=== PATIENT | female | born 1990 | race Caucasian/White ===

== ENCOUNTER → 2022-01-04 11:17 | Outpatient (REF) | payer BC, SELFPAY ==
--- NOTE | 2022-01-04 11:22 | CA_ITS ---
Transthoracic Echocardiogram Patient (Last, First, Middle): Marie Melo, Gender: Female Date of : 1990 Age: 31 Procedure Date: 01/04/2022 Procedure Type: Transthoracic Echocardiogram Location: OP Height: 160.02 cm Weight: 68.04 kg BSA: 1.71 m2 Heart Rate: bpm BP: 120 / 60 mmHg Open Hearth Laborer: Referring MD: Shilo Jain MD Symptoms: I47.1 - Supraventricular tachycardia Study Quality: Fair ECG Rhythm: Possible atrial tachycardia Conclusions: - The left ventricular systolic function is mildly decreased. The visually estimated ejection fraction is between 45-50%. - No obvious valvular pathology seen on this study. Findings Left Ventricle Normal left ventricular cavity size. There is normal left ventricular wall thickness. The left ventricular systolic function is mildly decreased. The visually estimated ejection fraction is between 45-50%. There is no evidence of regional wall motion abnormalities. Diastolic function is indeterminate on the basis of available data. Right Ventricle Normal right ventricular cavity size and systolic function. Atria Both atria are normal in size. Aortic Valve There is a normal trileaflet aortic valve. There is no aortic valve stenosis. There is no aortic valve regurgitation. Mitral Valve The mitral valve appears normal. There is no mitral valve regurgitation. There is no mitral valve stenosis. Pulmonic Valve The pulmonic valve is likely normal. Tricuspid Valve Normal tricuspid valve structure. There is trace tricuspid valve regurgitation. There is no evidence of pulmonary hypertension. Great Vessels The aortic annulus, sinuses of valsalva, and asc aorta are normal in size. Venous The inferior vena cava is normal in size and collapses greater than 50% with inspiration. Pericardium/Pleural There is no evidence of pericardial effusion. Prior Study Comparison No prior study available for comparison. Recommendations, Care & Conclusions No obvious valvular pathology seen on this study. Measurements 2D Linear Measurements IVSd: 1.02 0.6-0.9/0.6-1.0 cm LVIDd: 4.72 3.9-5.3/4.2-5.9 cm LVIDd Index: 2.76 2.4-3.2/2.2-3.1 cm/m2 LVIDs: 3.39 2.0-3.6 cm LVPWd: 1.00 0.7-1.1 cm Ao Root: 2.60 2.1-3.5 cm LA Diam: 4.00 2.7-3.8/3.0-4.0 cm LAIDs Index: 2.34 1.5-2.3 cm/m2 LV Mass: 208.36 67-162/88-224 g LV Mass Index: 121.85 43-95/49-115 g/m2 LVOT Diam: 2.00 3.0+(-)1.3 cm 2D Systolic Function EF 4C: 37.30 >55% EF 2C: 56.80 >55% EF BiP: 48.10 >55% Mitral Valve MV Pk E: 0.79 MV PK A: 0.55 MV Decel Time: 114.00 E/A: 1.40 E'Lateral: 19.10 E'Medial: 13.20 E/E' Med: 6.00 E/E' Lat: 4.20 PHT: 33.00 MVA PHT: 6.67 Decel [place]: 6.98 Aortic Valve AoV Pk Ad: 1.43 AoV Mn Ad: 1.05 AoV VTI: 0.26 AoV Pk Grad: 8.00 Aov Mn Grad: 5.00 RUDI Cont.VTI: 2.02 LVOT LVOT Pk Ad: 0.87 LVOT Mn Ad: 0.60 LVOT VTI: 0.17 LVOT Pk Grad: 3.00 LVOT Mn Grad: 2.00 LVOT Diam: 2.00 LVOT Area: 3.14 Diastolic Function MV Pk E: 0.79 MV Pk A: 0.55 E/A: 1.40 E'Medial: 13.20 E/E' Med: 6.00 E' Laterial: 19.10 E/E' Lat: 4.20 Right Ventricle TAPSE (mm): 25.00 TVS' Ad: 11.00 Tricuspid Valve TR Pk Ad: 1.77 TR Pk Grad: 13.00 RA Press: 3.00 RVSP: 16.00 Great Vessels Aorta Ao Root-2D: 2.60 2.0-3.7 cm Ao Asc: 2.50 2.1-3.4 cm Pulmonary Valve PV Pk Ad: 0.90 Peak PV Grad: 3.00 Updated in Other Vendor System with Status of Final Shilo Jain MD electronically signed on 01/04/2022 1:27:14 PM with status of Final
== END ==
LOC: HO.CARD 11:17
PROVIDERS: PCP Nurse Practitioner Family; Visit Provider Internal Medicine
DX: I47.1 Supraventricular tachycardia (principal)
CPT/HCPCS: 93005; 93306

== ENCOUNTER 2024-04-30 20:19 | Emergency (ER) | payer BC, SELFPAY ==
--- NOTE | 2024-04-30 | ECG_ITS ---
Test Reason : CHEST TIGHTNESS Blood Pressure : */* mmHG Vent. Rate : 101 BPM Atrial Rate : 101 BPM P-R Int : 150 ms QRS Dur : 80 ms QT Int : 334 ms P-R-T Axes : 38 41 88 degrees QTcB Int : 433 ms Sinus tachycardia Nonspecific T wave abnormality Abnormal ECG No previous ECGs available Referred By: Generic ED Physician Electronically Signed By: KARLIE OSWALD MD
--- NOTE | ~2024-04-30 | CT_ITS ---
CLINICAL HISTORY: Watchman procedure 11 days prior, SOB R O PE CT angiography chest with contrast. 3D Postprocessing. Comparison: None Findings: The thoracic aorta is normal caliber. No acute pulmonary embolus. The visualized thyroid and mediastinum are unremarkable. Moderate cardiomegaly. Moderate to large pericardial effusion measuring up to 2.4 cm in maximum width. Diffuse interstitial thickening and ground-glass opacities of both lungs and small bilateral pleural effusion. Left atrial appendage occlusive device is seen. The upper abdomen is unremarkable. No acute fractures. IMPRESSION: 1. Moderate cardiomegaly, and moderate to large pericardial effusion. 2. Diffuse interstitial thickening, and ground-glass opacities in both lungs as well as small bilateral pleural effusion consistent with fluid overload/CHF. 3. No pulmonary embolism or acute aortic syndrome. This document has been electronically signed by: Abhay Pierce MD on 04/30/2024 22:47:39
[2024-04-30 20:26] VITALS: BP 143/87; PULSE 100; RESP 24; TEMP 36.7; O2SAT 100; BMI 32.4
--- NOTE | 2024-04-30 20:28 | ED.SOB ---
HPI - SOB/Dyspnea General Chief Complaint: Arrhythmia/Palpitations Stated Complaint: Chest tightness Time Seen by Provider: 04/30/24 20:27 Source: patient and family (Mother, Megan who is a nurse) Mode of arrival: ambulatory Limitations: no limitations History of Present Illness ED Provider: Dr. Chidi Manzo HPI Narrative: 33-year-old female with a history of paroxysmal SVT which started 3 years prior during her , she was had multiple cardiac ablations which were unsuccessful on 04/19/2024 she had a video assisted thoracic surgeon for an atrial appendix clipping procedure. The patient states that since her procedure she has been feeling short of breath. She states over the last 1-2 days her shortness of breath is gotten worse and she was had increased dyspnea on exertion. She also states she was developed a pressure/tightness in her chest which seems to be worse with lying flat. She denied fever, chills, rhinorrhea, sore throat. She states she does not have a cough but she feels like she has to cough in order to expand her lungs. She denied nausea, vomiting, diarrhea, myalgias arthralgias. The patient's mother is a nurse and she was concerned that the patient may have a pulmonary embolism therefore she brought the patient to the emergency department for evaluation. The patient has not noticed any swelling or discomfort in her lower extremities. Related Data Home Medications ?Medication ?Instructions ?Recorded ?Confirmed bupropion HCl 300 mg 24 hr tablet, mg PO 04/30/24 extended release metoprolol succinate 25 mg mg PO 04/30/24 tablet,extended release 24 hr (Toprol XL) trazodone 50 mg tablet mg 04/30/24 Allergies Allergy/AdvReac Type Severity Reaction Status Date / Time penicillin G Allergy Unknown rash Verified 04/30/24 20:30 Review of Systems Review of Systems: Yes all other systems are reviewed and are negative [facility] Past Medical History Surgical History No pertinent past surgical history Family History Family History Father No problems noted. Mother No problems noted. Social History Social History Patient Tobacco Use Status: Never used Tobacco Advance Directives: No Advance Directives Information Provided: No Do you have a plan to hurt others: No Plan Patient : No Physical Exam Vital Signs: Vital Signs: Last Vital Signs Temp 98.1 F 05/01/24 11:54 Pulse 89 05/01/24 11:54 Resp 22 H 05/01/24 11:54 BP 122/81 05/01/24 11:54 Pulse Ox 94 05/01/24 11:54 O2 Del Method Room Air 05/01/24 11:54 BMI result Body Mass Index 32.4 Vital signs were normal. Exam: General: Awake, alert in no distress Head: Normocephalic, atraumatic EENT: PERRL, Lids normal, sclera normal, conjunctiva normal, nose normal , ears normal, throat without erythema or exudates Neck: Supple, no adenopathy Lung: breath sounds symmetric, no wheezing, rales or rhonchi Chest: The surgical incision sites on the patient's chest were inspected, there is no increased warmth, the incisions are well heal. Patient does have tenderness palpation over her left anterior inferior ribcage with no increased warmth or erythema in this area. Heart: regular rate and rhythm, normal S1, S2 no murmurs or rubs Abdomen: soft, non-tender, nondistended, normal bowel sounds Back: no vertebral tenderness, no CVAT Extremities: no deformities, no pitting edema Neuro: Awake, alert, oriented, normal speech, moves all extremities symmetrically Psych: Pleasant, cooperative Course Course Course Narrative: I have checked patient at bedside no JVD, mild tachycardia, BP stable ECHO being done Dr. Siddiqi at bedside he has reviewed ECHO no tamponade - IV toradol, colchicine ordered and 100 of LR an hour I contacted [facility] this AM on arrival 730am and they stated no open beds yet Will attempt to contact her provider Dr. Gregg to discuss findings - Dr. Siddiqi involved and is going to speak to Dr. Cristino COREA 9am 05/01/24 repeat calls to [facility] and Dr. Gregg office no beds still at this point 1030am ANMOL Reevaluation(s) Reevaluation #1: [facility] notes they have a bed waiting on bed number after RN to RN Findings: The thoracic aorta is normal caliber. No acute pulmonary embolus. The visualized thyroid and mediastinum are unremarkable. Moderate cardiomegaly. Moderate to large pericardial effusion measuring up to 2.4 cm in maximum width. Diffuse interstitial thickening and ground-glass opacities of both lungs and small bilateral pleural effusion. Left atrial appendage occlusive device is seen. The upper abdomen is unremarkable. No acute fractures. IMPRESSION: 1. Moderate cardiomegaly, and moderate to large pericardial effusion. 2. Diffuse interstitial thickening, and ground-glass opacities in both lungs as well as small bilateral pleural effusion consistent with fluid overload/CHF. 3. No pulmonary embolism or acute aortic syndrome. Medications Administered Generic Name Dose Route Start Last Admin Trade Name Freq PRN Reason Stop Dose Admin Lactated Ringer's 1,000 mls @ 100 mls/hr 05/01/24 09:15 05/01/24 09:20 Lr IVCONT 100 mls/hr .Q10H FAYE Administration Discontinued Medications Generic Name Dose Route Start Last Admin Trade Name Freq PRN Reason Stop Dose Admin Colchicine 0.6 mg 05/01/24 09:00 05/01/24 09:20 Colchicine 0.6 Mg Tablet PO 05/01/24 09:01 0.6 mg ONCE ONE Administration Sodium Chloride 1,000 mls @ 999 mls/hr 04/30/24 20:40 04/30/24 23:18 Ns IV 04/30/24 21:40 Infused .Q1H1M STA Infusion Acetaminophen 1,000 mg in 100 mls @ 400 mls/hr 05/01/24 14:17 05/01/24 14:21 Ofirmev IV 05/01/24 14:31 400 mls/hr ONCE ONE Administration Iohexol 65 ml 04/30/24 21:48 04/30/24 21:49 Iohexol 350 Mg/Ml 100 Ml Infus..Btl IV 04/30/24 21:49 65 ml ONCE ONE Administration Ketorolac Tromethamine 15 mg 05/01/24 09:00 05/01/24 09:20 Ketorolac Tromethamine 15 Mg/Ml Vial IVPUSH 05/01/24 09:01 15 mg ONCE ONE Administration Lorazepam 1 mg 04/30/24 23:03 04/30/24 23:16 Lorazepam 2 Mg/Ml Vial IVPUSH 04/30/24 23:04 1 mg STAT STA Administration Lorazepam 1 mg 05/01/24 00:58 05/01/24 01:02 Lorazepam 2 Mg/Ml Vial IVPUSH 05/01/24 00:59 1 mg STAT STA Administration Medical Decision Making Medical Decision Making [facility] Narrative: 33-year-old female with a history of paroxysmal SVT which started 3 years prior during her , she was had multiple cardiac ablations which were unsuccessful, on 04/19/2024 she had a video assisted thoracic surgeon for an atrial appendiceal clipping procedure at [facility]. Since the surgery she was had shortness of breath, over the last 1-2 days she was had increased shortness of breath, increased dyspnea on exertion and chest pressure/tightness with no other significant symptoms. It was were normal. Surgical sites appeared to be well healed with no evidence of cellulitis. She had no peripheral edema. Differential diagnosis: ?Includes but is not limited to pulmonary embolism, pericarditis, myocarditis, pericardial effusion, pleural effusions, pneumothorax, pneumonia, anemia, electrolyte abnormalities Course: 22:42 My interpretation patient's laboratory evaluation is as follows: Normocytic anemia with an H&H of 9.8 and 29. Elevated platelet count 531. ESR and CRP were elevated 95 and 8.66. BNP is elevated 133. High sensitive troponin I in his elevated at 37.2. PT INR and PTT were normal. D-dimer was elevated 2033. Urinalysis was negative. TSH was normal. Patient's anemia, elevated troponin, ESR, CRP and D-dimer could all be secondary to postsurgical inflammatory changes. Patient's 12 EKG revealed an elevated rate of 101 otherwise was unremarkable. 23:[address] angiogram PE protocol did not reveal any pulmonary embolism but the patient does have a moderate to large pericardial effusion which explains the patient's symptoms. I did discuss this with the patient and the patient's mother and they would like to be transferred back to [facility] further treatment. At this time I do not think that the patient has cardiac tamponade. After my discussion with the patient, she had vein very anxious and was given Ativan 1 mg IV 02:44 I did discuss the patient's presentation with urologist, Dr. Gregg who felt that the patient should be transferred to [facility] for further treatment. I also discuss the patient's presentation with the [facility] transfer line RN. At this time they do not have a bed for the patient but they believe there will the cardiology service in the morning and they requested that we call them back at 09:00 hours. A bedside ultrasound was performed and there was no sign of tamponade at this time, the right ventricle and left ventricles appears to be normal in size with no collapse of the right ventricle and there was no bowing of the ventricular septum. The patient will be kept in the emergency department until a bed can be obtained at [facility]. I did [facility] thoracic surgeon, Dr. Rod to make him aware of this patient in the event that she decompensates overnight. I will also obtain a formal echocardiogram in the morning. At the end of my shift, the patient's care was turned over to my colleague, Dr. Dorys Castillo. 03:52 I ordered a repeat H&H and troponin. Also will obtain a type and screen in the event that the patient's pericardial effusion is secondary to bleeding. Admission/Observation Consideration of admission/observation: Escalation of care including admission/observation considered (Yes) Lab Data MDM Lab Attestation statement: I reviewed the patient's lab results. 05/01/24 04:31 04/30/24 20:54 Labs: Lab Results 04/30/24 04/30/24 04/30/24 Range/Units 20:53 20:54 21:53 WBC 9.6 (4.8-10.8) X10*3/uL RBC 3.10 L (4.20-5.50) X10*6/uL Hgb 9.8 L (12.0-16.0) g/dl Hct 29.3 L (37.0-47.0) % MCV 94.5 (80.0-98.0) fL MCH 31.6 (27.0-33.0) pg MCHC 33.4 (31.0-35.0) g/dl RDW 11.3 (11.0-16.0) % Plt Count 531 H (160-400) X10*3/uL MPV 9.2 L (9.4-12.3) fL Immature Gran % (Auto) 0.4 (0.0-0.4) % Neut % (Auto) 62.2 (45-73) % Lymph % (Auto) 24.9 (20-40) % [place] % (Auto) 8.8 (2-11) % Eos % (Auto) 3.2 (0-4) % Baso % (Auto) 0.5 (0-2) % Lymph # (Auto) 2.4 (1.2-4.9) X10*3/uL [place] # (Auto) 0.9 (0.1-1.2) X10*3/uL Eos # (Auto) 0.3 (0.0-0.4) X10*3/uL Baso # (Auto) 0.1 (0.0-0.2) X10*3/uL Abs Immat Gran (auto) 0.04 H (0.00-0.03) X10*3/uL Absolute Neuts (auto) 6.0 (2.0-8.3) x10*3/uL Absolute Nucleated RBC 0.000 (0.0-0.012) X10*3/uL Nucleated RBC % (auto) 0.0 (0.0-0.2) /100WBC ESR 95 H (0-20) MM/HR PT 11.6 (10.9-12.4) SEC INR 1.0 (0.9-1.1) APTT 28.7 (26.0-36.8) SEC D-Dimer High Sensitivty 2033 NG/ML Sodium 139 (135-145) mmol/L Potassium 4.3 (3.3-5.1) mmol/L Chloride 106 (96-108) mmol/L Carbon Dioxide 23 (22-29) mmol/L Anion Gap 14 (12-20) BUN 15 (9-16) mg/dL Creatinine 0.67 (0.5-1.4) mg/dL Estim Creat Clear Calc 119.5 Estimated GFR > 60 Random Glucose 86 (60-115) mg/dL Lactic Acid 0.8 (0.5-2.0) mmol/L Calcium 8.6 (8.4-10.2) mg/dL Magnesium 2.2 (1.6-2.6) mg/dL Total Bilirubin 0.2 (0.0-1.0) mg/dL AST 26 (5-31) U/L ALT 21 (0-31) U/L Alkaline Phosphatase 112 (39-117) U/L Troponin I High Sens 37.2 H (<3.5-17.0) ng/L C-Reactive Protein 8.66 H (< or = 0.50) mg/dL B-Natriuretic Peptide 133 H (<100) pg/mL Total Protein 7.6 (6.5-8.0) g/dL Albumin 3.7 (3.5-5.0) g/dL Lipase 24 (8-78) U/L TSH 2.05 (0.32-4.0) uIU/mL Beta HCG, Quant < 2 mIU/mL Urine Color Yellow Urine Appearance Clear Urine pH 7.0 (5.0-9.0) Ur Specific [place] 1.020 (1.005-1.025) Urine Protein Negative (Neg-Trace) mg/dL Urine Glucose (UA) Negative (Negative) mg/dL Urine Ketones Negative (Negative) mg/dL Urine Blood Negative (Negative) Urine Nitrite Negative (Negative) Ur Leukocyte Esterase Negative (Negative) 05/01/24 05/01/24 Range/Units 00:11 04:31 WBC (4.8-10.8) X10*3/uL RBC (4.20-5.50) X10*6/uL Hgb 9.3 L (12.0-16.0) g/dl Hct 27.9 L (37.0-47.0) % MCV (80.0-98.0) fL MCH (27.0-33.0) pg MCHC (31.0-35.0) g/dl RDW (11.0-16.0) % Plt Count (160-400) X10*3/uL MPV (9.4-12.3) fL Immature Gran % (Auto) (0.0-0.4) % Neut % (Auto) (45-73) % Lymph % (Auto) (20-40) % [place] % (Auto) (2-11) % Eos % (Auto) (0-4) % Baso % (Auto) (0-2) % Lymph # (Auto) (1.2-4.9) X10*3/uL [place] # (Auto) (0.1-1.2) X10*3/uL Eos # (Auto) (0.0-0.4) X10*3/uL Baso # (Auto) (0.0-0.2) X10*3/uL Abs Immat Gran (auto) (0.00-0.03) X10*3/uL Absolute Neuts (auto) (2.0-8.3) x10*3/uL Absolute Nucleated RBC (0.0-0.012) X10*3/uL Nucleated RBC % (auto) (0.0-0.2) /100WBC ESR (0-20) MM/HR PT (10.9-12.4) SEC INR (0.9-1.1) APTT (26.0-36.8) SEC D-Dimer High Sensitivty NG/ML Sodium (135-145) mmol/L Potassium (3.3-5.1) mmol/L Chloride (96-108) mmol/L Carbon Dioxide (22-29) mmol/L Anion Gap (12-20) BUN (9-16) mg/dL Creatinine (0.5-1.4) mg/dL Estim Creat Clear Calc Estimated GFR Random Glucose (60-115) mg/dL Lactic Acid (0.5-2.0) mmol/L Calcium (8.4-10.2) mg/dL Magnesium (1.6-2.6) mg/dL Total Bilirubin (0.0-1.0) mg/dL AST (5-31) U/L ALT (0-31) U/L Alkaline Phosphatase (39-117) U/L Troponin I High Sens 29.2 H 26.3 H (<3.5-17.0) ng/L C-Reactive Protein (< or = 0.50) mg/dL B-Natriuretic Peptide (<100) pg/mL Total Protein (6.5-8.0) g/dL Albumin (3.5-5.0) g/dL Lipase (8-78) U/L TSH (0.32-4.0) uIU/mL Beta HCG, Quant mIU/mL Urine Color Urine Appearance Urine pH (5.0-9.0) Ur Specific [place] (1.005-1.025) Urine Protein (Neg-Trace) mg/dL Urine Glucose (UA) (Negative) mg/dL Urine Ketones (Negative) mg/dL Urine Blood (Negative) Urine Nitrite (Negative) Ur Leukocyte Esterase (Negative) Independent Interpretation I performed an independent interpretation of an: EKG Interpretation: My independent interpretation patient's 12 EKG done at 20:49 hours is as follows: Sinus tachycardia with a rate of 101, normal FL interval, QRS duration QTC interval, no ST segment elevation, no ST segment depression, no significant T-wave abnormalities, no PACs, no PVCs. Radiology Impression Discussion of test interpretation with radiology: I have reviewed the radiologist's reading. Radiologist Impression: CT angiography chest with contrast. 3D Postprocessing. Comparison: None Findings: The thoracic aorta is normal caliber. No acute pulmonary embolus. The visualized thyroid and mediastinum are unremarkable. Moderate cardiomegaly. Moderate to large pericardial effusion measuring up to 2.4 cm in maximum width. Diffuse interstitial thickening and ground-glass opacities of both lungs and small bilateral pleural effusion. Left atrial appendage occlusive device is seen. The upper abdomen is unremarkable. No acute fractures. IMPRESSION: 1. Moderate cardiomegaly, and moderate to large pericardial effusion. 2. Diffuse interstitial thickening, and ground-glass opacities in both lungs as well as small bilateral pleural effusion consistent with fluid overload/CHF. 3. No pulmonary embolism or acute aortic syndrome. This document has been electronically signed by: Abhay Pierce MD on 04/30/2024 22:47:39 Dictated By: Abhay Pierce MD Critical Care Time Critical Care Time Critical Care Time: Yes Total Critical Care Time: 35 Attestation: Critical Care: The patient was critically ill with a high probability of imminent or life threatening deterioration. I spent greater than 30 minutes of discontinuous time evaluating the patient,delivering critical care at the bedside, discussing and evaluating pertinent data with consultants. Critical care time does not include time spent performing separately billable procedures or teaching. Total time spent performing critical care was 35 minutes. Discharge Plan Discharge Clinical Impression: Acute pericardial effusion, Normocytic anemia Patient Disposition: er [facility] Hospital Transfer Details: BW Prescriptions: No Action trazodone 50 mg Tablet metoprolol succinate [Toprol XL] 25 mg Tablet Extended Release 24 Hr PO bupropion HCl 300 mg Tablet Extended Release 24 Hr PO Print Language: [place]guill[place]
--- NOTE | 2024-04-30 20:32 | PC.NURSE ---
pt brought into ED room 21 from , triage done, pt placed on electronic device monitor, ekg done, MD Manzo at bedside. Mom present . Patient able to answer all questions appropriately.
--- NOTE | 2024-04-30 20:41 | MHC.EDTECH ---
This tech assumed care of pt at this time,pt changed into hospital attire,vitals taken,pt placed on the alarm security or surveillance monitor, EKG taken per order,signed by provider,family at bedside call rodriguez in reach
[2024-04-30 20:59] LABS: MANUAL DIFF FLAG NO
[2024-04-30] MEDS: 0.9 % Sodium Chloride 1,000 ML 999 ML IV (20:59)
[2024-04-30 21:02] LABS: Basophils Absolute Auto 0.1 X10*3/uL (0.0-0.2); Basophils Percent Auto 0.5 % (0-2); Eosinophils Absolute Auto 0.3 X10*3/uL (0.0-0.4); Eosinophils Percent Auto 3.2 % (0-4); Hematocrit 29.3 % (37.0-47.0); Hemoglobin 9.8 g/dl (12.0-16.0); Imm Gran Abs Auto 0.04 X10*3/uL (0.00-0.03); Imm Gran Pct Auto 0.4 % (0.0-0.4); Lymphocytes Absolute Auto 2.4 X10*3/uL (1.2-4.9); Lymphocytes Percent Auto 24.9 % (20-40); Mean Corpuscular HGB Conc 33.4 g/dl (31.0-35.0); Mean Corpuscular Hemoglobin 31.6 pg (27.0-33.0); Mean Corpuscular Volume 94.5 fL (80.0-98.0); Mean Platelet Volume 9.2 fL (9.4-12.3); Monocytes Absolute Auto 0.9 X10*3/uL (0.1-1.2); Monocytes Percent Auto 8.8 % (2-11); Neutrophils Percent Auto 62.2 % (45-73); Platelet Count 531 X10*3/uL (160-400); Red Cell Distribution Width 11.3 % (11.0-16.0); White Blood Count 9.6 X10*3/uL (4.8-10.8)
[2024-04-30 21:08] LABS: Prothrombin Time 11.6 SEC (10.9-12.4)
[2024-04-30 21:10] LABS: D Dimer High Sensitivity 2033 NG/ML
[2024-04-30 21:11] LABS: Partial Thromboplastin Time 28.7 SEC (26.0-36.8)
[2024-04-30 21:16] LABS: Alanine Aminotransferase 21 U/L (0-31); Albumin Level 3.7 g/dL (3.5-5.0); Alkaline Phosphatase 112 U/L (39-117); Anion Gap 14 (12-20); Aspartate Amino Transferase 26 U/L (5-31); Bilirubin Total 0.2 mg/dL (0.0-1.0); Blood Urea Nitrogen 15 mg/dL (9-16); C Reactive Protein 8.66 mg/dL (< or = 0.50); Calcium 8.6 mg/dL (8.4-10.2); Carbon Dioxide 23 mmol/L (22-29); Chloride 106 mmol/L (96-108); Creatinine Clr Calc Pharmacy 119.5; Estimated Glomerular Filt Rate > 60; Glucose Random 86 mg/dL (60-115); Lipase 24 U/L (8-78); Magnesium 2.2 mg/dL (1.6-2.6); Potassium 4.3 mmol/L (3.3-5.1); Sodium 139 mmol/L (135-145); Total Protein 7.6 g/dL (6.5-8.0)
[2024-04-30 21:17] LABS: Lactic Acid 0.8 mmol/L (0.5-2.0)
[2024-04-30 21:21] LABS: B Type Natriuretic Peptide 133 pg/mL (<100)
[2024-04-30 21:23] LABS: Troponin-I High Sensitivity 37.2 ng/L (<3.5-17.0)
[2024-04-30 21:37] LABS: TSH reflex Free T4 2.05 uIU/mL (0.32-4.0)
[2024-04-30] MEDS: iohexoL 350 MG/ML 100 ML INFUS..BTL 65 ML IV (21:49)
[2024-04-30 21:55] LABS: Erythrocyte Sedimentation Rate 95 MM/HR (0-20)
[2024-04-30 21:58] VITALS: BP 134/68; PULSE 92; RESP 17; TEMP 36.7; O2SAT 100
[2024-04-30 22:00] LABS: Appearance Urine Clear; Color Urine Yellow; Glucose Urine UA Negative (Negative); Leukocyte Esterase Urine Negative (Negative); Nitrite Urine Negative (Negative); Urine Blood Negative (Negative); Urine Ketones Negative (Negative); Urine Protein Negative (Neg-Trace)
[2024-04-30 23:03] LABS: HCG Quantitative < 2 mIU/mL
[2024-04-30] MEDS: LORazepam 2 MG/ML VIAL 1 MG IVPUSH (23:16)
[2024-05-01] VITALS (8 sets, daily range): BP systolic 100–122; BP diastolic 60–81; PULSE 84–99; RESP 16–22; TEMP 36.7–37.6; O2SAT 94–98
[2024-05-01 00:35] LABS: Troponin-I High Sensitivity 29.2 ng/L (<3.5-17.0)
[2024-05-01] MEDS: LORazepam 2 MG/ML VIAL 1 MG IVPUSH ×2 (01:02→16:37)
--- NOTE | 2024-05-01 01:09 | PC.NURSE ---
pt medicated per mar for anxiety, given warm blankets, resting comfortably. on english horn player. mom at bedside. plan of care ongoing
--- NOTE | 2024-05-01 02:57 | PC.NURSE ---
per Dr deutsch [facility] pt, however there is no bed available overnight until at least the morning. Told to call at [address] Rod made aware that pt is staying in our ER overnight and supposed to have echo done first thing in AM . continuos monitoring in place. mom at bedside.
[2024-05-01 04:37] LABS: Hematocrit 27.9 % (37.0-47.0); Hemoglobin 9.3 g/dl (12.0-16.0)
[2024-05-01 05:03] LABS: Troponin-I High Sensitivity 26.3 ng/L (<3.5-17.0)
--- NOTE | 2024-05-01 06:41 | PC.NURSE ---
pt continues to rest comfortably on stretcher, no apparent respiratory distress noted , respirations even and unlabored. on cardiac specialist HR 90, O2 95% room air. brother at bedside - call rodriguez within reach , plan of care continues.
--- NOTE | 2024-05-01 07:00 | CA_ITS ---
Transthoracic Echocardiogram Amended Patient (Last, First, Middle): Marie Melo, Gender: Female Date of : 1990 Age: 33 Procedure Date: 05/01/2024 Procedure Type: Transthoracic Echocardiogram Location: ER Height: 160.02 cm Weight: 82.56 kg BSA: 1.86 m2 Heart Rate: bpm BP: 106 / 67 mmHg Patient Representative: Referring MD: Chidi Manzo MD Can Carrier: Paramjit Siddiqi MD Symptoms: Atrial appendix clipping, now with moderate Pericardial effusion Study Quality: Adequate ECG Rhythm: Sinus Conclusions: - 1. Large mostly circumferential pericardial effusion without clear hemodynamic evidence of tamponade 2. Normal LV ejection fraction of 60-65% 3. Normal cardiac valvular Dopplers Findings Left Ventricle Normal left ventricular size, thickness, and systolic function. The visually estimated ejection fraction is between 60-65%. Spectral Doppler is indicative of a normal filling pattern. Right Ventricle Normal right ventricular cavity size and systolic function. Atria Both atria are normal in size. There is no evidence of interatrial shunt. Aortic Valve Normal aortic valve structure and function. There is no aortic valve stenosis. There is no aortic valve regurgitation. Mitral Valve Normal mitral valve structure and function. There is no mitral valve regurgitation. There is no mitral valve stenosis. Pulmonic Valve The pulmonic valve is likely normal. Tricuspid Valve Normal tricuspid valve structure. There is trace tricuspid valve regurgitation. The right ventricular systolic pressure is normal. The right ventricular systolic pressure is 17 mmHg. Normal right atrial pressure. There is no evidence of pulmonary hypertension. Great Vessels All visible segments of the aorta are normal in size. The pulmonary artery was not well visualized. Venous The inferior vena cava is normal in size and collapses greater than 50% with inspiration. Pericardium/Pleural There is a large circumferential pericardial effusion. There are no definitive echocardiographic findings of tamponade physiology. The inferior vena cava is normal in size with preserved respiratory variability. No discernable variation of the mitral valve and tricuspid valve Doppler velocities with respiration. Measurements 2D Linear Measurements IVSd: 1.08 0.6-0.9/0.6-1.0 cm LVIDd: 4.57 3.9-5.3/4.2-5.9 cm LVIDd Index: 2.46 2.4-3.2/2.2-3.1 cm/m2 LVIDs: 2.81 2.0-3.6 cm LVPWd: 1.06 0.7-1.1 cm Ao Root: 2.60 2.1-3.5 cm LA Diam: 3.90 2.7-3.8/3.0-4.0 cm LAIDs Index: 2.10 1.5-2.3 cm/m2 LV Mass: 214.93 67-162/88-224 g LV Mass Index: 115.56 43-95/49-115 g/m2 LVOT Diam: 2.00 3.0+(-)1.3 cm 2D Volumes LA Vol: 31.70 Mitral Valve MV Pk E: 0.84 MV PK A: 0.73 MV Decel Time: 129.00 E/A: 1.20 E'Lateral: 8.16 E'Medial: 14.90 E/E' Med: 5.60 E/E' Lat: 10.30 PHT: 38.00 MVA PHT: 5.79 Decel [place]: 6.52 Aortic Valve AoV Pk Ad: 1.79 AoV Mn Ad: 1.29 AoV VTI: 0.35 AoV Pk Grad: 13.00 Aov Mn Grad: 8.00 RUDI Cont.VTI: 1.98 LVOT LVOT Pk Ad: 1.19 LVOT Mn Ad: 0.76 LVOT VTI: 0.22 LVOT Pk Grad: 6.00 LVOT Mn Grad: 3.00 LVOT Diam: 2.00 LVOT Area: 3.14 Diastolic Function MV Pk E: 0.84 MV Pk A: 0.73 E/A: 1.20 E'Medial: 14.90 E/E' Med: 5.60 E' Laterial: 8.16 E/E' Lat: 10.30 Right Ventricle TAPSE (mm): 27.00 TVS' Ad: 15.00 Tricuspid Valve TR Pk Ad: 1.84 TR Pk Grad: 14.00 RA Press: 3.00 RVSP: 17.00 Great Vessels Aorta Ao Root-2D: 2.60 2.0-3.7 cm Ao Asc: 2.50 2.1-3.4 cm Pulmonary Valve PV Pk Ad: 1.18 Peak PV Grad: 6.00 Updated in Other Vendor System with Status of Final Paramjit Siddiqi MD electronically signed on 05/01/2024 11:51:14 AM with status of Final
[2024-05-01] MEDS: Colchicine 0.6 MG TABLET PO (09:20)
[2024-05-01] MEDS: Lactated Ringers 1,000 ML 100 ML IVCONT (09:20)
[2024-05-01] MEDS: Ketorolac Tromethamine 15 MG/ML VIAL IVPUSH (09:20)
--- NOTE | 2024-05-01 10:09 | P.CONCA_ITS ---
History of Present Illness History of Present Illness Date of Service: 05/01/24 Requesting physician: Katherine Argueta Consult reason: other (Pericardial effusion) Chief complaint: Chest tightness Narrative: I was consulted to see Marie as she came to the hospital with increasing shortness of breath over the last 3-4 days and not able to lay flat. She had on April 19 a thoracoscopic cardiac surgical procedure at [facility] with with the left atrial appendage clip to manage her atrial tachycardia which has been incessant and has failed multiple endocardial ablations. Following that she was discharged home and said over the last couple weeks she has been having chest pain which appears to be pleuritic increasing respiration over the last 3-4 days she has been having increasing shortness of breath and therefore decided come to the emergency room. Workup done including chest CTA was suggestive of moderate to large pericardial effusion with cardiomegaly and then a bedside echocardiogram was done which confirms large pericardial effusion predominantly over the right-sided chambers and cardiology consult was sought. She has not had any hypotension or syncope at home. She does have shortness of breath when she lays down but feels a lot better when she is upright. She also has better pain control when she is in his semi reclining position rather than laying back. She does complain of palpitations. Have contacted her Cardiothoracic surgeon's office regarding her situation but have not heard back from a provider. Review of Systems 2 Constitutional: Constitutional: Reports no additional constitutional complaints Eyes: Eyes: Reports no additional eye complaints Cardiovascular: Cardiovascular: Reports chest pain at rest, Denies syncope, Denies leg edema, Denies lightheadedness, Denies Loss of Consciousness, Reports palpitations and Reports orthopnea Respiratory: Respiratory: Reports pain on inspiration Gastrointestinal: Gastrointestinal: Reports no additional gastrointestinal complaints Genitourinary: Genitourinary: Reports no additional female genitourinary complaints Musculoskeletal: Musculoskeletal: Reports no additional musculoskeletal complaints Neurologic: Reports system reviewed and no additional complaints, except as documented and Denies syncope Endocrine: Endocrine: Reports no additional endocrine complaints and Reports palpitations Allergic/Immunologic: Allergic/Immunologic: Reports no additional allergic/immunologic complaints [facility] Family History Family History Father No problems noted. Mother No problems noted. Surgical History Surgical History No pertinent past surgical history Social History Social History Patient Tobacco Use Status: Never used Tobacco Advance Directives: No Advance Directives Information Provided: No Do you have a plan to hurt others: No Plan Patient : No Meds Allergies Allergy/AdvReac Type Severity Reaction Status Date / Time penicillin G Allergy Unknown rash Verified 04/30/24 20:30 Active Medications: Current Medications Lactated Ringer's (Lr) 1,000 mls @ 100 mls/hr IVCONT .Q10H FAYE Last Admin: 05/01/24 09:20 Dose: 100 mls/hr Home Medications ?Medication ?Instructions ?Recorded ?Confirmed ?Last Taken ?Type bupropion HCl 300 mg 24 hr tablet, mg PO 04/30/24 Unknown History extended release metoprolol succinate 25 mg mg PO 04/30/24 Unknown History tablet,extended release 24 hr (Toprol XL) trazodone 50 mg tablet mg 04/30/24 Unknown History Physical Exam 2 Vital Signs: Vital Signs: Last Vital Signs Temp 98.1 F 05/01/24 07:15 Pulse 98 05/01/24 07:15 Resp 18 05/01/24 07:15 BP 106/67 05/01/24 07:15 Pulse Ox 96 05/01/24 07:15 O2 Del Method Room Air 05/01/24 07:15 BMI result Body Mass Index 32.4 No evidence of pulsus paradoxus Const: General: cooperative, comfortable, well developed, alert, awake, in distress mild and respiratory and anxious Nutritional Appearance: overweight Orientation/consciousness: patient oriented x3 Limitations: no limitations HEENT: Head: Yes normocephalic and Yes atraumatic Neck: Neck: Yes trachea midline, Yes supple and Yes no JVD Resp: Effort & Inspection: decreased respiratory effort Auscultation: no rales, no wheezes and diminished lung sounds Cardio: Jugular venous distension: no JVD Rate: regular rate Rhythm: r egular rhythm Heart sounds: S1 normal heart sound present, S2 normal heart sound present, no click, no gallops, no murmurs and no rubs GI: Auscultation: normal bowel sounds Skin: General skin exam: no rashes or lesions noted Neuro: General: patient oriented x3 and no focal motor deficits Extrem: General: Yes no clubbing, cyanosis or edema Psych: Appearance: grossly normal Objective Labs and Meds 05/01/24 04:31 04/30/24 20:54 Lab results: Laboratory Results - last 24 hr 04/30/24 04/30/24 04/30/24 20:53 20:54 21:53 WBC 9.6 RBC 3.10 L Hgb 9.8 L Hct 29.3 L MCV 94.5 MCH 31.6 MCHC 33.4 RDW 11.3 Plt Count 531 H MPV 9.2 L Immature Gran % (Auto) 0.4 Neut % (Auto) 62.2 Lymph % (Auto) 24.9 [place] % (Auto) 8.8 Eos % (Auto) 3.2 Baso % (Auto) 0.5 Lymph # (Auto) 2.4 [place] # (Auto) 0.9 Eos # (Auto) 0.3 Baso # (Auto) 0.1 Abs Immat Gran (auto) 0.04 H Absolute Neuts (auto) 6.0 Absolute Nucleated RBC 0.000 Nucleated RBC % (auto) 0.0 ESR 95 H PT 11.6 INR 1.0 APTT 28.7 D-Dimer High Sensitivty 2033 Sodium 139 Potassium 4.3 Chloride 106 Carbon Dioxide 23 Anion Gap 14 BUN 15 Creatinine 0.67 Estim Creat Clear Calc 119.5 Estimated GFR > 60 Random Glucose 86 Lactic Acid 0.8 Calcium 8.6 Magnesium 2.2 Total Bilirubin 0.2 AST 26 ALT 21 Alkaline Phosphatase 112 Troponin I High Sens 37.2 H C-Reactive Protein 8.66 H B-Natriuretic Peptide 133 H Total Protein 7.6 Albumin 3.7 Lipase 24 TSH 2.05 Beta HCG, Quant < 2 Urine Color Yellow Urine Appearance Clear Urine pH 7.0 Ur Specific [place] 1.020 Urine Protein Negative Urine Glucose (UA) Negative Urine Ketones Negative Urine Blood Negative Urine Nitrite Negative Ur Leukocyte Esterase Negative 05/01/24 05/01/24 00:11 04:31 WBC RBC Hgb 9.3 L Hct 27.9 L MCV MCH MCHC RDW Plt Count MPV Immature Gran % (Auto) Neut % (Auto) Lymph % (Auto) [place] % (Auto) Eos % (Auto) Baso % (Auto) Lymph # (Auto) [place] # (Auto) Eos # (Auto) Baso # (Auto) Abs Immat Gran (auto) Absolute Neuts (auto) Absolute Nucleated RBC Nucleated RBC % (auto) ESR PT INR APTT D-Dimer High Sensitivty Sodium Potassium Chloride Carbon Dioxide Anion Gap BUN Creatinine Estim Creat Clear Calc Estimated GFR Random Glucose Lactic Acid Calcium Magnesium Total Bilirubin AST ALT Alkaline Phosphatase Troponin I High Sens 29.2 H 26.3 H C-Reactive Protein B-Natriuretic Peptide Total Protein Albumin Lipase TSH Beta HCG, Quant Urine Color Urine Appearance Urine pH Ur Specific [place] Urine Protein Urine Glucose (UA) Urine Ketones Urine Blood Urine Nitrite Ur Leukocyte Esterase Assessment and Plan (1) Acute pericardial effusion: Status: Acute Large pericardial effusion, quite symptomatic with CTA evidence of pulmonary edema, clinically does not appear to be in significant congestive heart failure at this point time. Would avoid giving her diuretics. Echo evidence of large pericardial effusion without any tamponade physiology. I will maintain adequate hydration. 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 She needs pericardiocentesis, therapeutic with a drain and I would treat her with anti- inflammatory therapy. Advised to give Toradol as well as colchicine therapy to reduce inflammatory reaction. This was discussed with her and her family members who were present at bedside. Family prefers her to go back to [facility] in [place] and have placed called twice to the surgeon's office to discuss the case with them and initiate and expedite transfer. Family understands. Will follow closely if need be Procedures Date of Service Date of Service: 05/01/24
[2024-05-01] MEDS: Acetaminophen 1,000 MG/100 ML PIGGYBACK 400 MG IV (14:21)
--- NOTE | 2024-05-01 15:46 | MHC.EDTECH ---
Waiting for a call from Neema COLEMAN at [facility] in order to receive room assignment. Facility will not give assignment until nurse to nurse is complete.
--- NOTE | 2024-05-01 17:09 | PC.NURSE ---
Called Mark and Adria gave report to Neema on [facility] 7th floor Patient on LR at 100cc/hr [facility] ambulance just left with patient at [id number]. tele: sinus rythym 90-100's vital signs normal. 96% on room air. Patient given ativan to help with anxiety.
== END 2024-05-01 17:15 | disposition short-term general hospital (02) ==
PROVIDERS: Emergency Provider Emergency Medicine Emergency Medical Services; PCP Physician Assistant
DX: J90 Pleural effusion, not elsewhere classified (principal); D64.9 Anemia, unspecified; R06.02 Shortness of breath; I49.9 Cardiac arrhythmia, unspecified; R07.89 Other chest pain; R00.2 Palpitations; R00.0 Tachycardia, unspecified; R10.2 Pelvic and perineal pain; R11.2 Nausea with vomiting, unspecified; Z79.899 Other long term (current) drug therapy
CPT/HCPCS: 36415; 71275; 80053; 81003; 83605; 83690; 83735; 83880; 84443; 84484; 84702; 85014; 85018; 85025; 85379; 85610; 85652; 85730; 86140; 93005; 93306; 96361; 96365; 96366; 96375; 96376; 99285; J0131; J1885; J2060; J7120; Q9957; Q9967

== ENCOUNTER → 2024-04-30 20:41 | Outpatient (BNV) | payer BC, SELFPAY | PROVIDERS: Emergency Provider Emergency Medicine Emergency Medical Services; PCP Physician Assistant; Visit Provider Student in an Organized Health Care Education/Training Program | DX: I51.7 Cardiomegaly (principal); I31.39 Other pericardial effusion (noninflammatory); J90 Pleural effusion, not elsewhere classified | CPT/HCPCS: 71275 ==

== ENCOUNTER → 2024-04-30 21:59 | Outpatient (BNV) | payer BC, SELFPAY | PROVIDERS: Emergency Provider Emergency Medicine Emergency Medical Services; PCP Physician Assistant; Visit Provider Internal Medicine Cardiovascular Disease | DX: I30.9 Acute pericarditis, unspecified (principal) | CPT/HCPCS: 93010; 99283 ==

== ENCOUNTER → 2024-05-01 07:00 | Outpatient (BNV) | payer BC, SELFPAY | PROVIDERS: Emergency Provider Emergency Medicine Emergency Medical Services; PCP Physician Assistant; Visit Provider Internal Medicine Cardiovascular Disease | DX: I31.39 Other pericardial effusion (noninflammatory) (principal) | CPT/HCPCS: 93306 ==